=== PATIENT | male | born 1960 | race Two or more races ===

== ENCOUNTER 2021-01-06 09:47 | Inpatient (IN) | payer OTHER ==
[2021-01-06 10:22] VITALS: BMI 19.3
[2021-01-06] MEDS ORDERED: ONDANSETRON *ODT* 4 MG TABLET SL PRN (11:15)
[2021-01-06] MEDS ORDERED: MAG HYDROX/AL HYDROX/SIMETH 30 ML UNIT-DOSE CUP PO PRN (11:15)
[2021-01-06] MEDS ORDERED: IBUPROFEN 400 MG TABLET (FP) PO PRN (11:15)
[2021-01-06] MEDS ORDERED: METHOCARBAMOL 500 MG TABLET PO PRN (11:15)
[2021-01-06] MEDS ORDERED: MAGNESIUM HYDROX 2400MG/30ML ORAL SUSPENSION 30 ML CUP PO PRN (11:15)
[2021-01-06] MEDS ORDERED: MENTHOL/PHENOL 1 EACH UD MM PRN (11:15)
[2021-01-06] MEDS ORDERED: MAGNESIUM CITRATE 300 ML BOTTLE PO PRN (11:15)
[2021-01-06] MEDS ORDERED: NICOTINE POLACRILEX 2 MG GUM BUC PRN (11:15)
[2021-01-06] MEDS ORDERED: BISMUTH SUBSALICYLATE 524 MG/30 ML UD PO PRN (11:15)
[2021-01-06] MEDS ORDERED: ACETAMINOPHEN 325 MG TABLET (FP) PO PRN ×2 (11:15)
[2021-01-06] MEDS ORDERED: AMMONIUM LACTATE 12% LOTION 225 GM BOTTLE TP PRN (11:19)
[2021-01-06] MEDS: LORazepam 1 MG TABLET PO PRN ×2 (12:15→23:53)
[2021-01-06] MEDS: LIPASE/PROTEASE/AMYLASE 6,000 UNIT CAPSULE PO SCH ×2 (12:16→17:13)
[2021-01-06] MEDS: hydrOXYzine PAMOATE 25 MG CAPSULE (FP) PO SCH ×3 (14:23→22:51)
[2021-01-06 14:38] LABS: HEMATOCRIT 39.9 % (35.4-49); HEMOGLOBIN 13.1 GM/dL (11.7-16.9); MCH 33.1 pg (25.7-33.7); MCHC 32.8 g/dl (32.0-35.9); MEAN CELL VOLUME 100.9 fl (80-96); MEAN PLT VOLUME 7.3 fl (7.5-11.1); PLATELET COUNT 336 K/MM3 (134-434); RBC 3.95 M/mm3 (4.00-5.60); RDW 16.4 % (11.9-15.9); WHITE BLOOD COUNT 4.2 K/mm3 (4.0-10.0)
[2021-01-06 14:51] LABS: ALBUMIN 3.2 g/dl (3.4-5.0)
[2021-01-06 14:52] LABS: BLOOD UREA NITROGEN 12.7 mg/dL (7-18); CALCIUM 8.5 mg/dL (8.5-10.1)
[2021-01-06 14:54] LABS: CREATININE 0.9 mg/dL (0.55-1.3)
[2021-01-06 14:55] LABS: TOT PROT 6.5 g/dl (6.4-8.2)
[2021-01-06 15:38] LABS: POTASSIUM 2.9 mmol/L (3.5-5.1)
[2021-01-06] MEDS ORDERED: POTASSIUM CHLORIDE ORAL LIQUID 20 MEQ/15 ML PO ONE ×2 (16:30→20:30)
[2021-01-06] MEDS: LORazepam 2 MG TABLET PO SCH ×2 (17:28→22:51)
[2021-01-06] MEDS ORDERED: cloNIDine HCL 0.1 MG TABLET PO ONE (18:52)
[2021-01-06] MEDS ORDERED: MELATONIN 5 MG TABLETS PO SCH (22:00)
[2021-01-06] MEDS ORDERED: APIXABAN 2.5 MG TABLET PO SCH (22:00)
[2021-01-06] MEDS ORDERED: THIAMINE HCL 100 MG TABLET (FP) PO SCH (22:00)
[2021-01-06] MEDS ORDERED: QUEtiapine FUMARATE 50 MG TABLET PO SCH (22:00)
[2021-01-07 07:17] VITALS: BP 125/63; PULSE 60; TEMP 96.2
[2021-01-07] MEDS ORDERED: NICOTINE 21 MG/24 HOURS TOPICAL PATCH TD SCH (10:00)
[2021-01-07] MEDS ORDERED: HYDROCHLOROTHIAZIDE 12.5 MG CAPSULE (FP) PO SCH (10:00)
[2021-01-07] MEDS ORDERED: PRENATAL VITAMINS W/ FOLIC ACID TABLET (FP) PO SCH (10:00)
[2021-01-08] MEDS ORDERED: LORazepam 1 MG TABLET PO SCH (05:00)
[2021-01-09] MEDS ORDERED: LORazepam 0.5 MG TABLET PO PRN
[2021-01-09] MEDS ORDERED: LORazepam 0.5 MG TABLET PO SCH (05:00)
[2021-01-10] MEDS ORDERED: LORazepam 0.5 MG TABLET PO ONE (05:00)
== END 2021-01-07 00:39 | disposition short-term general hospital (02) | DRG 773 ==
LOC: YASAS 09:47 → Y3N 10:47
PROVIDERS: ADMIT Allergy & Immunology; ATTEND Allergy & Immunology
PROC: HZ2ZZZZ Detoxification Services for Substance Abuse Treatment (ICD-10-PCS; principal; 2021-01-06)
DX: F10.230 Alcohol dependence with withdrawal, uncomplicated (principal); F11.23 Opioid dependence with withdrawal; F17.210 Nicotine dependence, cigarettes, uncomplicated; F31.9 Bipolar disorder, unspecified; I10 Essential (primary) hypertension; B18.2 Chronic viral hepatitis C; M54.5 Low back pain; G89.29 Other chronic pain; R00.0 Tachycardia, unspecified; R74.01 Elevation of levels of liver transaminase levels; R79.89 Other specified abnormal findings of blood chemistry; R05 Cough; R63.4 Abnormal weight loss; Z68.1 Body mass index [BMI] 19.9 or less, adult; Z86.718 Personal history of other venous thrombosis and embolism; Z79.01 Long term (current) use of anticoagulants; Z86.2 Personal history of diseases of the blood and blood-forming organs and certain disorders involving the immune mechanism
CPT/HCPCS: 36415; 80053; 82962; 83690; 85027; 86780; C9803; J0735; U0003

== ENCOUNTER 2021-01-07 00:53 | Inpatient (IN) | payer OTHER ==
[2021-01-07 01:06] VITALS: BMI 25.0
[2021-01-07 02:36] LABS: HEMATOCRIT 33.6 % (35.4-49); HEMOGLOBIN 11.2 GM/dL (11.7-16.9); MCH 33.2 pg (25.7-33.7); MCHC 33.4 g/dl (32.0-35.9); MEAN CELL VOLUME 99.2 fl (80-96); MEAN PLT VOLUME 7.2 fl (7.5-11.1); PLATELET COUNT 227 K/MM3 (134-434); RBC 3.39 M/mm3 (4.00-5.60); RDW 15.9 % (11.9-15.9); WHITE BLOOD COUNT 4.2 K/mm3 (4.0-10.0)
[2021-01-07 02:47] LABS: VENOUS BASE EXCESS 9.9 mmol/L (-2-2); VENOUS O2 SATURATION 40.4 % (70-80); VENOUS PCO2 49.4 mmHg (38-52); VENOUS PH 7.471 (7.310-7.410)
[2021-01-07 02:59] LABS: CHLORIDE 94 mmol/L (98-107); POTASSIUM 3.4 mmol/L (3.5-5.1); SODIUM 137 mmol/L (136-145)
[2021-01-07 03:01] LABS: CALCIUM 8.5 mg/dL (8.5-10.1)
[2021-01-07 03:02] LABS: ALBUMIN 2.8 g/dl (3.4-5.0); ANION GAP 11 MMOL/L (8-16); BLOOD UREA NITROGEN 16.5 mg/dL (7-18); CO2 33 mmol/L (21-32); GLUCOSE,RANDOM 109 mg/dL (74-106)
[2021-01-07 03:05] LABS: CREATININE 1.2 mg/dL (0.55-1.3); SGOT/AST 306 U/L (15-37); SGPT/ALT 131 U/L (13-61)
[2021-01-07 03:07] LABS: LDH 496 U/L (87-246); TOT PROT 5.9 g/dl (6.4-8.2)
[2021-01-07] MEDS ORDERED: ACETAMINOPHEN 1000 MG/100 ML VIAL (NON FORMULARY) IVPB ONE (04:01)
[2021-01-07] MEDS ORDERED: DEXAMETHASONE SOD PHOSPHATE 4 MG/1 ML VIAL IVPUSH ONE (04:01)
[2021-01-07] MEDS ORDERED: LORazepam 2 MG/ML SDV VIAL IVPUSH ONE ×2 (04:08→06:12)
[2021-01-07] MEDS ORDERED: LORazepam 2 MG/ML SDV VIAL ONE ×3 (04:08→10:02)
[2021-01-07] MEDS ORDERED: DEXAMETHASONE SOD PHOSPHATE 4 MG/1 ML VIAL ONE (04:13)
[2021-01-07] MEDS ORDERED: ACETAMINOPHEN INJECTION 100 ML IVPB ONE (04:14)
[2021-01-07 04:26] LABS: ALK PHOS 365 U/L (45-117)
[2021-01-07] MEDS: LORazepam 1 MG TABLET PO ONE ×2 (04:50→06:12)
[2021-01-07 04:53] LABS: INR 1.24 (0.83-1.09); PROTHROMBIN TIME (PATIENT) 15.2 SEC (9.7-13.0)
[2021-01-07 04:55] LABS: ACTIVATED PTT 29.3 SECONDS (25.2-36.5)
[2021-01-07] MEDS ORDERED: LACTATED RINGERS SOLUTION 1000 ML INFUS.BAG IV ONE (04:55)
[2021-01-07] MEDS ORDERED: THIAMINE HCL 200 MG/2 ML VIAL IVPB ONE (06:01)
[2021-01-07] MEDS ORDERED: CHOLECALCIFEROL (VIT D3) 1,000 UNIT (25 MCG) TABLET PO ONE (06:03)
[2021-01-07] MEDS ORDERED: THIAMINE HCL 200 MG/2 ML VIAL ONE ×2 (06:34→07:24)
[2021-01-07] MEDS ORDERED: KCL 10 MEQ IVPB 10 MEQ/100 ML INFUS.BAG IVPB ONE ×2 (06:34→07:25)
[2021-01-07] MEDS: KCL 10 MEQ IVPB 10 MEQ/100 ML INFUS.BAG IVPB SCH ×2 (06:35→08:50)
[2021-01-07] MEDS: SODIUM CHLORIDE 1,000 ML IV SCH (06:36)
[2021-01-07] MEDS ORDERED: FOLIC ACID INJECTION - 1 MG, THIAMINE HCL 100 MG, MULTIVIT INJECTION ADULT 10 ML in SOD... IVPB ONE (07:00)
[2021-01-07] MEDS ORDERED: ZINC SULFATE 220 MG CAPSULE (FP) ONE (07:24)
[2021-01-07] MEDS ORDERED: ASCORBIC ACID 500 MG TABLET (FP) ONE (07:24)
[2021-01-07] MEDS ORDERED: ENOXAPARIN NA (PORCINE) 80 MG/0.8 ML DISP.SYRIN SQ ONE (07:25)
[2021-01-07] MEDS ORDERED: FOLIC ACID 1 MG TABLET (FP) ONE (07:25)
[2021-01-07] MEDS ORDERED: CHOLECALCIFEROL (VIT D3) 1,000 UNIT (25 MCG) TABLET ONE (07:25)
[2021-01-07] MEDS ORDERED: ENOXAPARIN NA (PORCINE) 80 MG/0.8 ML DISP.SYRIN SQ SCH (10:00)
[2021-01-07] MEDS: ZINC SULFATE 220 MG CAPSULE (FP) PO SCH (10:09)
[2021-01-07] MEDS: LORazepam 2 MG/ML SDV VIAL IVPUSH PRN ×4 (10:09→23:00)
[2021-01-07] MEDS: ASCORBIC ACID 500 MG TABLET (FP) PO SCH ×2 (10:09→21:20)
[2021-01-07 10:57] LABS: BASO % 0.4 % (0-2.0); HEMOGLOBIN 11.8 GM/dL (11.7-16.9); LYMPH % 11.2 % (8-40); MCH 33.1 pg (25.7-33.7); MCHC 33.6 g/dl (32.0-35.9); MEAN CELL VOLUME 98.4 fl (80-96); MEAN PLT VOLUME 7.5 fl (7.5-11.1); MONO % 5.6 % (3.8-10.2); NEUT % 82.8 % (42.8-82.8); PLATELET COUNT 229 K/MM3 (134-434); RBC 3.56 M/mm3 (4.00-5.60); RDW 15.7 % (11.9-15.9); WHITE BLOOD COUNT 4.2 K/mm3 (4.0-10.0)
[2021-01-07 11:21] LABS: POTASSIUM 3.7 mmol/L (3.5-5.1)
[2021-01-07 11:33] LABS: ALBUMIN 2.9 g/dl (3.4-5.0); BLOOD UREA NITROGEN 13.2 mg/dL (7-18); CALCIUM 8.4 mg/dL (8.5-10.1); MAGNESIUM 1.4 mg/dL (1.8-2.4)
[2021-01-07 11:37] LABS: CREATININE 0.9 mg/dL (0.55-1.3)
[2021-01-07 11:38] LABS: BILIRUBIN,TOTAL 1.5 mg/dL (0.2-1)
[2021-01-07] MEDS: MAGNESIUM 1GM/D5W - 1 GM/100 ML IVPB IVPB SCH ×2 (13:38→14:27)
[2021-01-07] MEDS: CARVEDILOL 3.125 MG TABLET (FP) PO SCH ×2 (13:39→21:20)
[2021-01-07] MEDS ORDERED: PATIENT'S OWN MEDICATION (NON-FORMULARY) (Lipase/Protease/Amylase [Pancreaze Dr 4,200 Unit PO SCH (14:00)
[2021-01-07] MEDS ORDERED: PT OWN MED DRAWER 7, Y5N ONE (18:45)
[2021-01-07] MEDS: ATORVASTATIN CA 10 MG TABLET (FP) PO SCH (21:19)
[2021-01-07] MEDS: ENOXAPARIN NA (PORCINE) 40 MG/0.4 ML DISP.SYRIN SQ SCH (21:24)
[2021-01-08] MEDS: SODIUM CHLORIDE 1,000 ML IV SCH (07:18)
[2021-01-08 07:29] LABS: BASO % 0.6 % (0-2.0); EOS % 0.1 % (0-4.5); HEMATOCRIT 40.3 % (35.4-49); HEMOGLOBIN 13.5 GM/dL (11.7-16.9); LYMPH % 22.8 % (8-40); MCH 33.2 pg (25.7-33.7); MCHC 33.4 g/dl (32.0-35.9); MEAN CELL VOLUME 99.5 fl (80-96); MEAN PLT VOLUME 8.4 fl (7.5-11.1); MONO % 6.3 % (3.8-10.2); NEUT % 70.2 % (42.8-82.8); PLATELET COUNT 266 K/MM3 (134-434); RBC 4.06 M/mm3 (4.00-5.60); RDW 15.9 % (11.9-15.9); WHITE BLOOD COUNT 5.1 K/mm3 (4.0-10.0)
[2021-01-08 08:02] LABS: POTASSIUM 3.2 mmol/L (3.5-5.1)
[2021-01-08] MEDS ORDERED: POTASSIUM CHLORIDE TABS 20 MEQ TABLET.ER (FP) PO ONE (08:07)
[2021-01-08 08:13] LABS: CALCIUM 8.1 mg/dL (8.5-10.1)
[2021-01-08 08:14] LABS: BLOOD UREA NITROGEN 7.6 mg/dL (7-18); MAGNESIUM 1.7 mg/dL (1.8-2.4)
[2021-01-08 08:17] LABS: CREATININE 0.7 mg/dL (0.55-1.3)
[2021-01-08] MEDS ORDERED: PT OWN MED DRAWER 7, Y5N ONE (08:17)
[2021-01-08 08:18] LABS: BILIRUBIN,TOTAL 1.6 mg/dL (0.2-1); TOT PROT 6.4 g/dl (6.4-8.2)
[2021-01-08] MEDS: KCL 10 MEQ IVPB 10 MEQ/100 ML INFUS.BAG IVPB SCH ×3 (08:26→12:05)
[2021-01-08] MEDS: LORazepam 2 MG/ML SDV VIAL IVPUSH PRN ×2 (08:26→18:40)
[2021-01-08] MEDS ORDERED: MAGNESIUM SULF 50% (8.12 MEQ/2 ML-1 GM VIAL) IVPB ONE (08:31)
[2021-01-08] MEDS: ZINC SULFATE 220 MG CAPSULE (FP) PO SCH (09:17)
[2021-01-08] MEDS: MULTIVITAMINS (DAILY MVI) TABLET (FP) PO SCH (09:17)
[2021-01-08] MEDS: CARVEDILOL 3.125 MG TABLET (FP) PO SCH ×2 (09:17→22:41)
[2021-01-08] MEDS: ENOXAPARIN NA (PORCINE) 40 MG/0.4 ML DISP.SYRIN SQ SCH ×2 (09:18→22:41)
[2021-01-08] MEDS: THIAMINE HCL 200 MG/2 ML VIAL IVPB SCH (09:18)
[2021-01-08] MEDS: ASCORBIC ACID 500 MG TABLET (FP) PO SCH ×2 (09:18→22:41)
[2021-01-08] MEDS: FOLIC ACID 5 MG/1 ML SQ SCH (09:38)
[2021-01-08] MEDS ORDERED: LORazepam 1 MG TABLET PO PRN (13:19)
[2021-01-08] MEDS ORDERED: METHADONE HCL 10 MG TABLET PO ONE (13:19)
[2021-01-08] MEDS ORDERED: cloNIDine HCL 0.1 MG TABLET PO PRN (13:19)
[2021-01-08] MEDS ORDERED: D5-1/2NS+20 MEQ KCL - 20 MEQ/1,000 ML INFUS.BAG IV SCH (14:00)
[2021-01-08] MEDS ORDERED: LORazepam 2 MG TABLET PO SCH (17:00)
[2021-01-08] MEDS: LORazepam 1 MG TABLET PO SCH ×2 (17:05→22:42)
[2021-01-08] MEDS: ATORVASTATIN CA 10 MG TABLET (FP) PO SCH (22:41)
[2021-01-09] MEDS: LORazepam 2 MG/ML SDV VIAL IVPUSH PRN (03:15)
[2021-01-09] MEDS: LORazepam 1 MG TABLET PO SCH ×4 (05:45→22:41)
[2021-01-09 07:57] LABS: BASO % 0.6 % (0-2.0); HEMATOCRIT 38.3 % (35.4-49); HEMOGLOBIN 12.7 GM/dL (11.7-16.9); LYMPH % 28.1 % (8-40); MCH 33.4 pg (25.7-33.7); MCHC 33.3 g/dl (32.0-35.9); MEAN CELL VOLUME 100.4 fl (80-96); MEAN PLT VOLUME 8.6 fl (7.5-11.1); NEUT % 63.3 % (42.8-82.8); PLATELET COUNT 230 K/MM3 (134-434); RBC 3.81 M/mm3 (4.00-5.60); RDW 15.7 % (11.9-15.9); WHITE BLOOD COUNT 6.5 K/mm3 (4.0-10.0)
[2021-01-09 08:37] LABS: POTASSIUM 3.1 mmol/L (3.5-5.1)
[2021-01-09 08:46] LABS: CALCIUM 8.1 mg/dL (8.5-10.1)
[2021-01-09 08:47] LABS: ALBUMIN 2.6 g/dl (3.4-5.0); BLOOD UREA NITROGEN 8.7 mg/dL (7-18); MAGNESIUM 1.7 mg/dL (1.8-2.4)
[2021-01-09 08:50] LABS: CREATININE 0.7 mg/dL (0.55-1.3); PHOSPHOROUS 2.9 mg/dL (2.5-4.9)
[2021-01-09 08:51] LABS: BILIRUBIN,TOTAL 1.4 mg/dL (0.2-1); TOT PROT 5.8 g/dl (6.4-8.2)
[2021-01-09] MEDS ORDERED: MAGNESIUM 1GM/D5W 100ML - 100 ML IVPB IVPB ONE ×2 (09:15→11:15)
[2021-01-09] MEDS ORDERED: POTASSIUM CHLORIDE TABS 20 MEQ TABLET.ER (FP) PO ONE (09:30)
[2021-01-09] MEDS: MULTIVITAMINS (DAILY MVI) TABLET (FP) PO SCH (09:40)
[2021-01-09] MEDS: THIAMINE HCL 200 MG/2 ML VIAL IVPB SCH (09:40)
[2021-01-09] MEDS: CARVEDILOL 3.125 MG TABLET (FP) PO SCH ×2 (09:40→22:38)
[2021-01-09] MEDS: ASCORBIC ACID 500 MG TABLET (FP) PO SCH ×2 (09:40→22:37)
[2021-01-09] MEDS: ENOXAPARIN NA (PORCINE) 40 MG/0.4 ML DISP.SYRIN SQ SCH ×2 (09:41→22:37)
[2021-01-09] MEDS ORDERED: PT OWN MED DRAWER 7, Y5N ONE (09:43)
[2021-01-09] MEDS: FOLIC ACID 5 MG/1 ML SQ SCH (09:43)
[2021-01-09] MEDS ORDERED: METHADONE HCL 10 MG TABLET PO ONE ×2 (10:00)
[2021-01-09] MEDS ORDERED: METHADONE 20 MG, METHADONE 5 MG PO ONE (10:00)
[2021-01-09] MEDS: KCL 10 MEQ IVPB 10 MEQ/100 ML INFUS.BAG IVPB SCH ×3 (10:50→14:04)
[2021-01-09 10:55] LABS: ANISOCYTOSIS 1+; MACROCYTOSIS 1+; PLATELET ESTIMATE NORMAL; TARGET CELLS 1+
[2021-01-09] MEDS: ATORVASTATIN CA 10 MG TABLET (FP) PO SCH (22:37)
[2021-01-10] MEDS: ZINC OXIDE/PANTHENOL/VITAMIN E 56 GM TUBE TP SCH ×2 (06:00→11:43)
[2021-01-10] MEDS: LORazepam 1 MG TABLET PO SCH ×4 (06:30→22:01)
[2021-01-10 07:21] LABS: BASO % 0.9 % (0-2.0); EOS % 0.3 % (0-4.5); HEMATOCRIT 33.6 % (35.4-49); HEMOGLOBIN 11.5 GM/dL (11.7-16.9); LYMPH % 35.5 % (8-40); MCH 34.7 pg (25.7-33.7); MCHC 34.3 g/dl (32.0-35.9); MEAN CELL VOLUME 101.2 fl (80-96); MEAN PLT VOLUME 8.4 fl (7.5-11.1); MONO % 12.4 % (3.8-10.2); NEUT % 50.9 % (42.8-82.8); PLATELET COUNT 235 K/MM3 (134-434); RBC 3.32 M/mm3 (4.00-5.60); RDW 15.8 % (11.9-15.9)
[2021-01-10 07:55] LABS: POTASSIUM 3.8 mmol/L (3.5-5.1)
[2021-01-10 08:04] LABS: ALBUMIN 2.3 g/dl (3.4-5.0); BLOOD UREA NITROGEN 10.7 mg/dL (7-18); CALCIUM 8.1 mg/dL (8.5-10.1)
[2021-01-10 08:07] LABS: CREATININE 0.8 mg/dL (0.55-1.3)
[2021-01-10 08:08] LABS: PHOSPHOROUS 3.5 mg/dL (2.5-4.9)
[2021-01-10 08:09] LABS: BILIRUBIN,TOTAL 1.2 mg/dL (0.2-1); TOT PROT 5.2 g/dl (6.4-8.2)
[2021-01-10] MEDS ORDERED: METHADONE HCL 10 MG TABLET PO ONE (10:00)
[2021-01-10] MEDS ORDERED: PT OWN MED DRAWER 7, Y5N ONE (10:11)
[2021-01-10 11:19] LABS: ANISOCYTOSIS 1+; MACROCYTOSIS 0; OVALOCYTE 1+; PLATELET ESTIMATE NORMAL
[2021-01-10] MEDS: CARVEDILOL 3.125 MG TABLET (FP) PO SCH ×2 (11:43→22:02)
[2021-01-10] MEDS: FOLIC ACID 5 MG/1 ML SQ SCH (11:45)
[2021-01-10] MEDS: THIAMINE HCL 200 MG/2 ML VIAL IVPB SCH (11:46)
[2021-01-10] MEDS: MULTIVITAMINS (DAILY MVI) TABLET (FP) PO SCH (11:46)
[2021-01-10] MEDS: ENOXAPARIN NA (PORCINE) 40 MG/0.4 ML DISP.SYRIN SQ SCH ×2 (11:46→22:01)
[2021-01-10] MEDS: ASCORBIC ACID 500 MG TABLET (FP) PO SCH ×2 (11:47→22:01)
[2021-01-10] MEDS ORDERED: MAGNESIUM OXIDE 400 MG TABLET (FP) PO ONE (12:00)
[2021-01-10] MEDS ORDERED: POTASSIUM CHLORIDE TABS 20 MEQ TABLET.ER (FP) PO ONE (12:00)
[2021-01-10] MEDS: ATORVASTATIN CA 10 MG TABLET (FP) PO SCH (22:01)
[2021-01-11] MEDS ORDERED: LORazepam 2 MG/ML SDV VIAL IVPUSH ONE ×2 (01:41→04:10)
[2021-01-11] MEDS: LORazepam 0.5 MG TABLET PO SCH ×3 (04:40→18:05)
[2021-01-11] MEDS ORDERED: METHADONE HCL 10 MG TABLET PO ONE (06:00)
[2021-01-11 08:38] LABS: HEMATOCRIT 32.4 % (35.4-49); HEMOGLOBIN 10.7 GM/dL (11.7-16.9); LYMPH % 37.3 % (8-40); MCH 34.1 pg (25.7-33.7); MCHC 33.1 g/dl (32.0-35.9); MEAN PLT VOLUME 8.8 fl (7.5-11.1); MONO % 20.1 % (3.8-10.2); NEUT % 40.6 % (42.8-82.8); PLATELET COUNT 264 K/MM3 (134-434); RBC 3.15 M/mm3 (4.00-5.60); RDW 15.8 % (11.9-15.9); WHITE BLOOD COUNT 4.3 K/mm3 (4.0-10.0)
[2021-01-11 08:57] LABS: POTASSIUM 4.6 mmol/L (3.5-5.1)
[2021-01-11 09:05] LABS: CALCIUM 8.4 mg/dL (8.5-10.1)
[2021-01-11 09:11] LABS: BILIRUBIN,TOTAL 1.3 mg/dL (0.2-1); TOT PROT 5.4 g/dl (6.4-8.2)
[2021-01-11 09:24] LABS: ALBUMIN 2.4 g/dl (3.4-5.0); BLOOD UREA NITROGEN 9.7 mg/dL (7-18); MAGNESIUM 1.9 mg/dL (1.8-2.4)
[2021-01-11 09:27] LABS: CREATININE 0.8 mg/dL (0.55-1.3); PHOSPHOROUS 3.3 mg/dL (2.5-4.9)
[2021-01-11] MEDS ORDERED: METHADONE 10 MG, METHADONE 5 MG PO ONE (10:00)
[2021-01-11] MEDS ORDERED: PT OWN MED DRAWER 7, Y5N ONE (10:07)
[2021-01-11] MEDS: MULTIVITAMINS (DAILY MVI) TABLET (FP) PO SCH (10:16)
[2021-01-11] MEDS: THIAMINE HCL 200 MG/2 ML VIAL IVPB SCH (10:16)
[2021-01-11] MEDS: ZINC OXIDE/PANTHENOL/VITAMIN E 56 GM TUBE TP SCH (10:17)
[2021-01-11] MEDS: ASCORBIC ACID 500 MG TABLET (FP) PO SCH ×2 (10:17→21:39)
[2021-01-11] MEDS: CARVEDILOL 3.125 MG TABLET (FP) PO SCH ×2 (10:17→21:38)
[2021-01-11] MEDS: FOLIC ACID 5 MG/1 ML SQ SCH (10:19)
[2021-01-11] MEDS: ENOXAPARIN NA (PORCINE) 40 MG/0.4 ML DISP.SYRIN SQ SCH ×2 (10:22→21:38)
[2021-01-11 10:53] LABS: ANISOCYTOSIS 1+; MACROCYTOSIS 1+; PLATELET ESTIMATE NORMAL
[2021-01-11] MEDS ORDERED: LORazepam 0.5 MG TABLET PO PRN ×2 (20:57)
[2021-01-11] MEDS: ATORVASTATIN CA 10 MG TABLET (FP) PO SCH (21:38)
[2021-01-11] MEDS ORDERED: LORazepam 0.5 MG TABLET PO SCH (23:00)
[2021-01-12] MEDS ORDERED: LORazepam 0.5 MG TABLET PO ONE (05:00)
[2021-01-12] MEDS ORDERED: METHADONE HCL 10 MG TABLET PO ONE (10:00)
[2021-01-12] MEDS: ASCORBIC ACID 500 MG TABLET (FP) PO SCH ×2 (10:34→21:55)
[2021-01-12] MEDS: CARVEDILOL 3.125 MG TABLET (FP) PO SCH ×2 (10:34→21:56)
[2021-01-12] MEDS: MULTIVITAMINS (DAILY MVI) TABLET (FP) PO SCH (10:34)
[2021-01-12] MEDS: THIAMINE HCL 200 MG/2 ML VIAL IVPB SCH (10:35)
[2021-01-12] MEDS: ENOXAPARIN NA (PORCINE) 40 MG/0.4 ML DISP.SYRIN SQ SCH ×2 (10:36→21:55)
[2021-01-12] MEDS: FOLIC ACID 5 MG/1 ML SQ SCH (12:26)
[2021-01-12] MEDS: ZINC OXIDE/PANTHENOL/VITAMIN E 56 GM TUBE TP SCH (12:27)
[2021-01-12] MEDS: IBUPROFEN 200 MG TABLET PO PRN ×2 (16:28→22:00)
[2021-01-12] MEDS: ATORVASTATIN CA 10 MG TABLET (FP) PO SCH (21:56)
[2021-01-12] MEDS ORDERED: PT OWN MED DRAWER 7, Y5N ONE (22:00)
[2021-01-12] MEDS ORDERED: MELATONIN 5 MG TABLETS PO ONE (23:03)
[2021-01-13] MEDS ORDERED: NICOTINE 7 MG/24 HOURS TOPICAL PATCH TD ONE (04:19)
[2021-01-13] MEDS ORDERED: METHADONE HCL 5 MG TABLET PO ONE (06:00)
[2021-01-13] MEDS ORDERED: PT OWN MED DRAWER 7, Y5N ONE ×6 (08:04→18:47)
[2021-01-13] MEDS: MULTIVITAMINS (DAILY MVI) TABLET (FP) PO SCH (09:46)
[2021-01-13] MEDS: ASCORBIC ACID 500 MG TABLET (FP) PO SCH ×2 (09:46→21:38)
[2021-01-13] MEDS: CARVEDILOL 3.125 MG TABLET (FP) PO SCH ×2 (09:46→21:37)
[2021-01-13] MEDS: LIPASE/PROTEASE/AMYLASE 36,000 UNIT CAPSULE PO SCH ×3 (09:46→18:48)
[2021-01-13] MEDS: ENOXAPARIN NA (PORCINE) 40 MG/0.4 ML DISP.SYRIN SQ SCH ×2 (09:47→21:38)
[2021-01-13] MEDS: ZINC OXIDE/PANTHENOL/VITAMIN E 56 GM TUBE TP SCH (09:47)
[2021-01-13] MEDS: THIAMINE HCL 200 MG/2 ML VIAL IVPB SCH (09:47)
[2021-01-13 10:02] LABS: ALBUMIN 2.9 g/dl (3.4-5.0)
[2021-01-13 10:03] LABS: BLOOD UREA NITROGEN 9.9 mg/dL (7-18); CALCIUM 8.8 mg/dL (8.5-10.1)
[2021-01-13 10:06] LABS: BILIRUBIN,TOTAL 1.2 mg/dL (0.2-1); CREATININE 0.9 mg/dL (0.55-1.3); PHOSPHOROUS 4.4 mg/dL (2.5-4.9); TOT PROT 6.5 g/dl (6.4-8.2)
[2021-01-13 10:09] LABS: POTASSIUM 4.7 mmol/L (3.5-5.1)
[2021-01-13 10:17] LABS: BASO % 1.1 % (0-2.0); EOS % 1.7 % (0-4.5); HEMATOCRIT 36.2 % (35.4-49); HEMOGLOBIN 12.1 GM/dL (11.7-16.9); LYMPH % 45.3 % (8-40); MCH 35.6 pg (25.7-33.7); MCHC 33.4 g/dl (32.0-35.9); MEAN CELL VOLUME 106.6 fl (80-96); MONO % 22.8 % (3.8-10.2); NEUT % 29.1 % (42.8-82.8); PLATELET COUNT 351 K/MM3 (134-434); RBC 3.39 M/mm3 (4.00-5.60); RDW 15.7 % (11.9-15.9)
[2021-01-13 10:21] LABS: WHITE BLOOD COUNT 6.5 K/mm3 (4.0-10.0)
[2021-01-13] MEDS: FOLIC ACID 5 MG/1 ML SQ SCH (11:50)
[2021-01-13 12:11] LABS: ANISOCYTOSIS 1+; MACROCYTOSIS 1+; PLATELET ESTIMATE NORMAL
[2021-01-13] MEDS: IBUPROFEN 200 MG TABLET PO PRN ×2 (15:34→23:04)
[2021-01-13] MEDS: ATORVASTATIN CA 10 MG TABLET (FP) PO SCH (21:38)
[2021-01-13] MEDS ORDERED: MELATONIN 5 MG TABLETS PO ONE (23:17)
[2021-01-14] MEDS ORDERED: PT OWN MED DRAWER 7, Y5N ONE ×4 (07:55→09:30)
[2021-01-14] MEDS: LIPASE/PROTEASE/AMYLASE 36,000 UNIT CAPSULE PO SCH ×2 (08:24→11:57)
[2021-01-14 08:49] LABS: BASO % 1.2 % (0-2.0); EOS % 1.2 % (0-4.5); HEMATOCRIT 33.3 % (35.4-49); HEMOGLOBIN 11.5 GM/dL (11.7-16.9); LYMPH % 44.2 % (8-40); MCH 36.2 pg (25.7-33.7); MCHC 34.4 g/dl (32.0-35.9); MEAN CELL VOLUME 105.1 fl (80-96); MEAN PLT VOLUME 8.4 fl (7.5-11.1); MONO % 23.8 % (3.8-10.2); NEUT % 29.6 % (42.8-82.8); PLATELET COUNT 459 K/MM3 (134-434); RBC 3.17 M/mm3 (4.00-5.60); RDW 15.5 % (11.9-15.9)
[2021-01-14 09:11] LABS: POTASSIUM 5.2 mmol/L (3.5-5.1)
[2021-01-14] MEDS: IBUPROFEN 200 MG TABLET PO PRN (09:16)
[2021-01-14] MEDS: MULTIVITAMINS (DAILY MVI) TABLET (FP) PO SCH (09:17)
[2021-01-14] MEDS: CARVEDILOL 3.125 MG TABLET (FP) PO SCH (09:17)
[2021-01-14] MEDS: ENOXAPARIN NA (PORCINE) 40 MG/0.4 ML DISP.SYRIN SQ SCH (09:18)
[2021-01-14] MEDS: ZINC OXIDE/PANTHENOL/VITAMIN E 56 GM TUBE TP SCH (09:18)
[2021-01-14] MEDS: ASCORBIC ACID 500 MG TABLET (FP) PO SCH (09:18)
[2021-01-14 09:21] LABS: CALCIUM 8.9 mg/dL (8.5-10.1)
[2021-01-14 09:22] LABS: BLOOD UREA NITROGEN 10.8 mg/dL (7-18); MAGNESIUM 2.1 mg/dL (1.8-2.4)
[2021-01-14 09:25] LABS: CREATININE 0.9 mg/dL (0.55-1.3); PHOSPHOROUS 4.1 mg/dL (2.5-4.9)
[2021-01-14 09:26] LABS: TOT PROT 6.6 g/dl (6.4-8.2)
[2021-01-14] MEDS: THIAMINE HCL 200 MG/2 ML VIAL IVPB SCH (10:45)
[2021-01-14] MEDS: FOLIC ACID 5 MG/1 ML SQ SCH (10:47)
[2021-01-14 11:42] LABS: ANISOCYTOSIS 1+; MACROCYTOSIS 1+; PLATELET ESTIMATE NORMAL
[2021-01-14 12:12] VITALS: TEMP 98.3
[2021-01-14 14:45] VITALS: BP 120/81; PULSE 59
[2021-01-15] MEDS ORDERED: AMINO ACIDS/PROTEIN HYDROLYS 30 ML LIQUID.PKT PO SCH (08:00)
== END 2021-01-14 16:46 | disposition home or self-care (01) | DRG 773 ==
LOC: JER 00:53 → JERBED 04:46 → J4W 13:10 → J8W 01-11 20:02
PROVIDERS: ADMIT Hospitalist; ATTEND Student in an Organized Health Care Education/Training Program
PROC: HZ2ZZZZ Detoxification Services for Substance Abuse Treatment (ICD-10-PCS; principal; 2021-01-07)
DX: F10.231 Alcohol dependence with withdrawal delirium (principal); I10 Essential (primary) hypertension; E78.5 Hyperlipidemia, unspecified; F11.23 Opioid dependence with withdrawal; F17.210 Nicotine dependence, cigarettes, uncomplicated; E87.6 Hypokalemia; K70.10 Alcoholic hepatitis without ascites; E83.42 Hypomagnesemia; I24.8 Other forms of acute ischemic heart disease; E87.2 Acidosis; U07.1 COVID-19; K86.1 Other chronic pancreatitis; F31.9 Bipolar disorder, unspecified; R00.0 Tachycardia, unspecified; R50.9 Fever, unspecified; M54.5 Low back pain; R94.5 Abnormal results of liver function studies; R74.01 Elevation of levels of liver transaminase levels; Z86.718 Personal history of other venous thrombosis and embolism
CPT/HCPCS: 36415; 70450-TC; 71045-TC-FY; 76705-TC; 80053; 80074; 80307; 82140; 82550; 82553; 82728; 82803; 83605; 83615; 83690; 83735; 84100; 84484; 85025; 85027; 85379; 85610; 85730; 86140; 86769; 93005; 93010; 99285-25; C9803; J0131; U0003